=== PATIENT | female | born 1990 | race Caucasian/White ===

== ENCOUNTER 2017-08-26 01:52 | Emergency (ER) | payer OTHER, SELFPAY ==
[2017-08-26] MEDS ORDERED: Ketorolac Tromethamine 30 MG/ML VIAL ONE (02:58)
== END 2017-08-26 03:22 | disposition home or self-care (01) ==
LOC: ERS 01:52
DX: K08.89 Other specified disorders of teeth and supporting structures (principal); Z98.818 Other dental procedure status; F17.210 Nicotine dependence, cigarettes, uncomplicated
CPT/HCPCS: 96372; 99406; J1885

== ENCOUNTER 2018-07-18 11:05 | Emergency (ER) | payer SELFPAY ==
[2018-07-18 11:44] LABS: #Basophils 0.1 thou/uL (0.0-0.2); #Eosinphils 0.1 thou/uL (0.0-0.7); #Lymphocytes 2.2 thou/uL (1.20-3.40); #Monocytes 0.4 thou/uL (0.11-0.59); %Basophils 0.8 % (0.0-1.0); %Eosinophils 1.8 % (0.0-10.0); %Monocytes 6.2 % (0.0-10.0); %Neutrophils 58.2 % (42.0-75.0); Hemoglobin 13.5 g/dL (12.0-16.0); Mean Corpuscular HGB CONC 33.8 g/dL (32.0-36.0); Mean Corpuscular Volume 94.6 fL (78.0-98.0); Mean Platelet Volume 8.1 fL (7.4-10.4); Platelet Count 218 thou/uL (130-400); RBC Distribution Width 11.8 % (11.5-14.5); Red Blood Cell (RBC) Count 4.23 mill/uL (4.20-5.40); White Blood Cell (WBC) Count 6.8 thou/uL (4.8-10.8)
[2018-07-18 11:48] LABS: Bilirubin Negative (Negative); Blood, Urine Negative (Negative); Clarity CLEAR (Clear); Glucose, Urine (Dipstick) Negative (Negative); Leukocyte Negative (Negative); Nitrite Negative (Negative); Protein, Urine (Dipstick) Negative (Neg-Trace); Urobilinogen 0.2 mg/dL (0.2-1.0); pH, Urine 6.5 (5.0-9.0)
[2018-07-18 11:55] LABS: BHCG - Serum Negative (NEGATIVE); Pregs Control Background? CLEAR/WHITE (CLR/WHITE); Pregs Control Bar Appear? YES (CONTROL BAR)
[2018-07-18 12:07] LABS: ALT (SGPT) 13 U/L (8-55); AST (SGOT) 20 U/L (5-34); Albumin 4.5 g/dL (3.5-5.0); Alkaline Phosphatase 54 U/L (40-150); Anion Gap 12 mmol/L (10-20); BUN (Urea Nitrogen) 9 mg/dL (7.0-18.7); Bilirubin, Total 0.3 mg/dL (0.2-1.2); Calc. Creatinine Clearance 0 mL/min (70-130); Calcium 9.3 mg/dL (7.8-10.44); Carbon Dioxide 25 mmol/L (22-29); Chloride 106 mmol/L (98-107); Estimated GFR-MDRD 85; Globulin 2.8 g/dL (2.4-3.5); Glucose 81 mg/dL (70-105); Lipase 16 U/L (8-78); Potassium 3.5 mmol/L (3.5-5.1); Protein, Total 7.3 g/dL (6.0-8.3); Sodium 139 mmol/L (136-145)
== END 2018-07-18 12:20 | disposition home or self-care (01) ==
LOC: ERS 11:05
DX: N64.52 Nipple discharge (principal); F41.9 Anxiety disorder, unspecified; F17.210 Nicotine dependence, cigarettes, uncomplicated; Z79.899 Other long term (current) drug therapy
CPT/HCPCS: 36415; 80053; 81003; 83690; 84703; 85025; 99283

== ENCOUNTER 2018-10-08 07:15 | Outpatient (CLI) | payer MEDICAID ==
--- NOTE | 2018-10-08 09:23 | ULT ---
8793 PELVIC SONOGRAM TRANSABDOMINAL AND TRANSVAGINAL IMAGING WITH DUPLEX EVALUATION: HISTORY: Irregular menses. FINDINGS: Urinary bladder is incompletely distended. Uterus has a heterogeneous echotexture and is 8.8 cm. En dometrium is 1.0 cm. No free fluid. The right ovary is 3.1 cm and the left is 2.4 cm. Each has a no rmal sonographic appearance with good color and spectral Doppler flow. IMPRESSION: Normal pelvic sonogram. POS: [facility]
== END 2018-10-08 07:16 | disposition home or self-care (01) ==
LOC: BICULT 07:15
PROVIDERS: ATTEND Advanced Practice Midwife
DX: N92.6 Irregular menstruation, unspecified (principal)
CPT/HCPCS: 76856

== ENCOUNTER 2018-12-21 15:08 | Emergency (ER) | payer MEDICAID, SELFPAY ==
[2018-12-21 15:50] LABS: #Basophils 0.1 thou/uL (0.0-0.2); #Eosinphils 0.4 thou/uL (0.0-0.7); #Lymphocytes 3.1 thou/uL (1.20-3.40); #Monocytes 0.6 thou/uL (0.11-0.59); #Neutrophils 5.9 thou/uL (1.40-6.50); %Basophils 1.1 % (0.0-1.0); %Eosinophils 4.4 % (0.0-10.0); %Lymphocytes 30.5 % (21.0-51.0); %Monocytes 6.1 % (0.0-10.0); %Neutrophils 57.9 % (42.0-75.0); Mean Corpuscular HGB CONC 34.3 g/dL (32.0-36.0); Mean Corpuscular Hemoglobin 32.5 pg (27.0-31.0); Mean Corpuscular Volume 94.7 fL (78.0-98.0); Mean Platelet Volume 8.1 fL (7.4-10.4); Platelet Count 231 thou/uL (130-400); RBC Distribution Width 11.8 % (11.5-14.5); Red Blood Cell (RBC) Count 4.33 mill/uL (4.20-5.40); White Blood Cell (WBC) Count 10.1 thou/uL (4.8-10.8)
[2018-12-21] MEDS ORDERED: Ondansetron PF 4 MG/2 ML Vial ONE (15:58)
[2018-12-21 16:14] LABS: ALT (SGPT) 16 U/L (8-55); AST (SGOT) 18 U/L (5-34); Albumin 4.2 g/dL (3.5-5.0); Alkaline Phosphatase 61 U/L (40-150); Anion Gap 9 mmol/L (10-20); BUN (Urea Nitrogen) 9 mg/dL (7.0-18.7); Bilirubin, Total Less than 0.2 mg/dL (0.2-1.2); Calc. Creatinine Clearance 0 mL/min (70-130); Calcium 9.4 mg/dL (7.8-10.44); Carbon Dioxide 29 mmol/L (22-29); Chloride 105 mmol/L (98-107); Estimated GFR-MDRD 80; Globulin 2.9 g/dL (2.4-3.5); Glucose 85 mg/dL (70-105); Lipase 23 U/L (8-78); Potassium 3.7 mmol/L (3.5-5.1); Protein, Total 7.1 g/dL (6.0-8.3); Sodium 139 mmol/L (136-145)
[2018-12-21] MEDS ORDERED: Metoclopramide HCl 10 MG/2 ML VIAL ONE (16:41)
[2018-12-21] MEDS ORDERED: Acetaminophen 500 MG TAB ONE (16:41)
[2018-12-21 17:02] LABS: BHCG - Serum Negative (NEGATIVE); Pregs Control Background? CLEAR/WHITE (CLR/WHITE); Pregs Control Bar Appear? YES (CONTROL BAR)
--- NOTE | 2018-12-21 17:18 | CT ---
CT HEAD NONCONTRAST: Indication: Dizziness with blurry vision. FINDINGS: Reference made to 04-01-15 exam. The ventricular system is normal in size. There is no acute intracranial hemorrhage, mass effect, or midline shift. IMPRESSION: No acute intracranial abnormalities. POS: [facility]
== END 2018-12-21 17:45 | disposition home or self-care (01) ==
LOC: ERS 15:08
DX: R42 Dizziness and giddiness (principal); F17.210 Nicotine dependence, cigarettes, uncomplicated; F41.9 Anxiety disorder, unspecified; Z79.899 Other long term (current) drug therapy
CPT/HCPCS: 36415; 70450; 80053; 83690; 84703; 85025; 96361; 96365; 96375; J2405; J2765

== ENCOUNTER 2019-06-27 17:37 | Emergency (ER) | payer SELFPAY | END 2019-06-27 18:17 | disposition home or self-care (01) | LOC: ERS 17:37 | DX: K08.89 Other specified disorders of teeth and supporting structures (principal); F41.9 Anxiety disorder, unspecified; F17.210 Nicotine dependence, cigarettes, uncomplicated; Z79.899 Other long term (current) drug therapy | CPT/HCPCS: 99282 ==

== ENCOUNTER 2021-01-02 15:19 | Emergency (ER) | payer BC, OTHER ==
[2021-01-02] MEDS ORDERED: Ketorolac Tromethamine 30 MG/ML VIAL ONE (15:52)
== END 2021-01-02 17:07 | disposition home or self-care (01) ==
LOC: ERS 15:19
DX: M25.562 Pain in left knee (principal); M25.561 Pain in right knee; F17.210 Nicotine dependence, cigarettes, uncomplicated
CPT/HCPCS: 96372; J1885

== ENCOUNTER 2022-06-09 11:37 | Emergency (ER) | payer OTHER ==
[2022-06-09] MEDS ORDERED: Ibuprofen 200 MG TAB ONE (12:10)
[2022-06-09] MEDS ORDERED: Acetaminophen 500 MG TAB ONE (12:11)
== END 2022-06-09 13:08 | disposition home or self-care (01) ==
LOC: ERS 11:37
DX: M54.41 Lumbago with sciatica, right side (principal); M62.838 Other muscle spasm; F17.210 Nicotine dependence, cigarettes, uncomplicated
CPT/HCPCS: 99283

== ENCOUNTER 2023-02-11 19:36 | Emergency (ER) | payer OTHER ==
[2023-02-11 20:09] LABS: #Basophils 0.1 thou/uL (0.0-0.2); #Eosinphils 0.1 thou/uL (0.0-0.7); #Lymphocytes 2.8 thou/uL (1.20-3.40); #Monocytes 0.6 thou/uL (0.11-0.59); #Neutrophils 4.1 thou/uL (1.40-6.50); %Basophils 1.3 % (0.0-1.0); %Eosinophils 1.9 % (0.0-10.0); Hemoglobin 14.9 g/dL (12.0-16.0); Mean Corpuscular HGB CONC 34.7 g/dL (32.0-36.0); Mean Corpuscular Hemoglobin 32.9 pg (27.0-31.0); Mean Corpuscular Volume 94.8 fl (78.0-98.0); Mean Platelet Volume 7.7 fL (7.4-10.4); Platelet Count 232 10x3/uL (130-400); RBC Distribution Width 11.9 % (11.5-14.5); Red Blood Cell (RBC) Count 4.54 mill/uL (4.20-5.40); White Blood Cell (WBC) Count 7.7 10x3/uL (4.8-10.8)
[2023-02-11 20:16] LABS: BHCG - Serum Negative (NEGATIVE); Pregs Control Background? CLEAR/WHITE (CLR/WHITE); Pregs Control Bar Appear? YES (CONTROL BAR)
[2023-02-11 20:32] LABS: ALT (SGPT) 24 U/L (8-55); AST (SGOT) 21 U/L (5-34); Albumin 4.5 g/dL (3.5-5.0); Alkaline Phosphatase 55 U/L (40-110); Anion Gap 11 mmol/L (10-20); BUN (Urea Nitrogen) 11 mg/dL (7.0-18.7); Bilirubin, Total 0.2 mg/dL (0.2-1.2); Calc. Creatinine Clearance 0 mL/min (70-130); Calcium 8.7 mg/dL (7.8-10.44); Carbon Dioxide 25 mmol/L (22-29); Chloride 109 mmol/L (98-107); Estimated GFR 99; Globulin 2.7 g/dL (2.4-3.5); Glucose 61 mg/dL (70-105); Lipase 17 U/L (8-78); Potassium 4.1 mmol/L (3.5-5.1); Protein, Total 7.2 g/dL (6.0-8.3); Sodium 141 mmol/L (136-145)
== END 2023-02-11 21:08 | disposition left against medical advice (07) ==
LOC: ERS 19:36
DX: Z53.29 Procedure and treatment not carried out because of patient's decision for other reasons (principal); F17.210 Nicotine dependence, cigarettes, uncomplicated
CPT/HCPCS: 36415; 80053; 83690; 84703; 85025; 99284

== ENCOUNTER 2025-08-30 08:02 | Outpatient (CLI) | payer OTHER | END 2025-08-30 08:03 | disposition home or self-care (01) | LOC: BICRAD 08:02 | PROVIDERS: ATTEND Nurse Practitioner Family | DX: M25.552 Pain in left hip (principal); M16.11 Unilateral primary osteoarthritis, right hip; M16.12 Unilateral primary osteoarthritis, left hip ==

== ENCOUNTER 2025-10-04 17:07 | Emergency (ER) | payer OTHER ==
[2025-10-04] MEDS ORDERED: Cephalexin 250 MG CAP ONE (18:22)
== END 2025-10-04 18:30 | disposition home or self-care (01) ==
LOC: ERS 17:07
DX: L02.416 Cutaneous abscess of left lower limb (principal); L03.116 Cellulitis of left lower limb; F17.210 Nicotine dependence, cigarettes, uncomplicated
CPT/HCPCS: 99282